=== PATIENT | male | born 1990 | race Caucasian/White ===

== ENCOUNTER 2022-03-22 03:02 | Emergency (ER) | payer OTHER, SELFPAY ==
--- NOTE | ~2022-03-22 | XR_ITS ---
EXAMINATION: XR chest 1V portable DATE: 03/22/2022 03:23 INDICATION: Difficulty breathing. TECHNIQUE: A single frontal view of the chest was obtained. COMPARISON: None. FINDINGS: There are mild airspace opacities in the lower lung zones. No pleural effusion or pneumotho rax. The heart size is normal. IMPRESSION: 1. Mild airspace opacities in the lower lung zones, consistent with atelectasis versus pneumonia. Reviewed, dictated and finalized at location A. [employer] I MANAGER
[2022-03-22 03:00] VITALS: BP 139/79; PULSE 73; RESP 19; TEMP 36.9; O2SAT 98
--- NOTE | 2022-03-22 03:08 | ECG_ITS ---
Measurements Intervals [place] Rate: 68 P: 19 ID: [id number] QRS: 9 QRSD: 112 T: 29 QT: 413 QTc: 440 Interpretive Statements SINUS RHYTHM WITH SINUS ARRHYTHMIA INCOMPLETE RIGHT BUNDLE BRANCH BLOCK ST ELEVATION IN DIFFUSE LEADS- PROBABLY EARLY REPOLARIZATION BASELINE WANDER- II, III, AVF BORDERLINE ECG NO PREVIOUS ECG AVAILABLE FOR COMPARISON Electronically Signed On 03-22-2022 6:46:15 [employer] by Ryan Alonzo D.O.
[2022-03-22 03:15] VITALS: O2SAT 99
--- NOTE | 2022-03-22 03:33 | ED.SOB ---
HPI - SOB/Dyspnea General Chief Complaint: Shortness of Breath/Dyspnea Stated Complaint: DIFFICULTY IN BREATHING Time Seen by Provider: 03/22/22 03:06 History of Present Illness HPI Narrative: Patient states that he has been having a slight cough last few days and coughing up stuff, he is also endorsing some mild chest tightness and shortness of breath. States the last time he had this was also a cold. Related Data Home Medications Medication Instructions Recorded Confirmed No Home Medications 03/22/22 03/22/22 Allergies Allergy/AdvReac Type Severity Reaction Status Date / Time codeine Allergy Unknown RASH Verified 03/22/22 03:10 Review of Systems Review of Systems: CONST: Chills HEENT: No sore throat C/V: chest pain RESP: cough GI: No nausea vomiting : No dysuria. M/S: No joint pain. SKIN: No rash. NEURO: [No headache or focal numbness or weakness] PSYCH: [No depression] [facility] Past Medical History Medical History (Updated 03/22/22 @ 03:38 by Olamide Huber MD) No active medical problems Surgical History Surgical History (Updated 03/22/22 @ 03:39 by Olamide Huber MD) No significant past surgical history Exam Narrative: EXAMINATION OF ORGAN SYSTEMS/BODY AREAS: Constitutional: Vital signs per nursing GENERAL:[No acute distress, non-toxic appearing.] Resting/sleeping comfortably HEAD: Normal with no signs of head trauma. EYES: EOMI, conjunctiva normal ENT: Hearing grossly intact LUNGS: Nonlabored breathing. CTAB HEART: [Regular rate and rhythm] ABD: [Soft], nondistended EXT: Normal range of motion SKIN: [No rashes or lesions.] NEURO: [Alert and oriented x 3. No gross focal sensory or strength deficits.] PSYCH: Normal affect Course Vital Signs Vital signs: Vital Signs Temperature 98.4 F 03/22/22 03:00 Pulse Rate 73 03/22/22 03:00 Respiratory Rate 19 03/22/22 03:00 Blood Pressure 139/79 03/22/22 03:00 Pulse Oximetry 98 03/22/22 03:00 Oxygen Delivery Room Air 03/22/22 03:00 Temperature 98.4 F 03/22/22 03:00 Pulse Rate 74 03/22/22 03:38 Respiratory Rate 20 03/22/22 03:38 Blood Pressure 137/66 03/22/22 03:38 Pulse Oximetry 99 03/22/22 03:38 Oxygen Delivery Room Air 03/22/22 03:15 MDM - SOB/Dyspnea MDM Narrative Medical decision making narrative: ED COURSE AND MEDICAL DECISION MAKING: This 31-year old patient presents with symptoms most suggestive of viral upper respiratory tract infection. Lungs are clear bilaterally without any respiratory distress or accessory muscle use. He is resting comfortably. Per EMS, he actually had been staying at a senior care house because he is on parole, and had actually asked EMS to take him to the furthest hospital possible, and given his well appearance here and the fact that he was sleeping most of the time here in no distress. EKG - 12-Lead: Performed at 0310. Interpreted by me. [Sinus rhythm]. Rate 68. [Normal] axis. MA-interval [normal]. QRS duration [normal]. QTc [normal]. [No ST segment elevation or depression]. [T-wave normal]. Impression: No EKG evidence of acute ischemia or dysrhythmia. Chest x-ray interpreted by myself, no acute process. Negative for flu, RSV, COVID. Patient is discharged home in stable condition with expectant management. Return precautions were provided. Procedures: Pulse oximetry interpretation - not hypoxic. Review of medical records. DISPOSITION: Discharged home in stable condition. Lab Data Labs: Lab Results 03/22/22 Range/Units 03:30 Influenza A (RT-PCR) Negative (Negative) Influenza B (RT-PCR) Negative (Negative) RSV (RT-PCR) Negative (Negative) SARS-CoV-2 RNA (RT-PCR) Negative Discharge Plan Discharge Clinical Impression: Cough, Mild shortness of breath, Chest pain Patient Disposition: Home, Self-Care Condition: Stable Instructions: Antibiotic Form, Chest Pain (DC), Acute Cough (ED) Additional Instructions: Please follow
[2022-03-22 03:38] VITALS: BP 137/66; PULSE 74; RESP 20; O2SAT 99
[2022-03-22 04:11] LABS: Influenza A QL RT-PCR Negative (Negative); Influenza B QL RT-PCR Negative (Negative); RSV RNA, RT-PCR Negative (Negative); SARS-CoV-2 RNA PCR Negative
== END 2022-03-22 03:50 | disposition home or self-care (01) ==
PROVIDERS: Emergency Provider Emergency Medicine
DX: R05.9 Cough, unspecified (principal); R06.02 Shortness of breath; R07.89 Other chest pain; Z20.822 Contact with and (suspected) exposure to COVID-19
CPT/HCPCS: 71045; 87637; 93005; 99283

== ENCOUNTER 2022-03-22 06:03 | Emergency (ER) | payer OTHER, SELFPAY ==
[2022-03-22 06:20] VITALS: BP 150/79; PULSE 83; RESP 16; TEMP 36.4; O2SAT 99
--- NOTE | 2022-03-22 06:23 | ED.GENADULT ---
HPI - General Adult General Chief complaint: Unspecified Stated complaint: Libido issues Time Seen by Provider: 03/22/22 06:17 History of Present Illness HPI narrative: Patient presents stating that he'll wake up and be screaming and jacking off. He states for months now he'll take a long time to ejaculate and when he does, it hits the wall, and then his scrotum will be sore. No acute changes in his symptoms; no current testicular or penile pain. He wants to have his testosterone checked; he has history of marijuana and methamphetamine use. Related Data Home Medications Medication Instructions Recorded Confirmed No Home Medications 03/22/22 03/22/22 Allergies Allergy/AdvReac Type Severity Reaction Status Date / Time codeine Allergy Unknown RASH Verified 03/22/22 03:10 Review of Systems Review of Systems: CONST: Chills HEENT: No sore throat C/V: No chest pain currently RESP: Cough GI: No nausea or vomiting : Penile dysfunction M/S: No joint pain. SKIN: No rash. NEURO: [No headache or focal numbness or weakness] PSYCH: Substance use issues [facility] Past Medical History Medical History No active medical problems Surgical History Surgical History No significant past surgical history Social History Social History (Updated 03/22/22 @ 06:27 by Olamide Huber MD) Substance use type: marijuana and methamphetamine Exam Narrative: EXAMINATION OF ORGAN SYSTEMS/BODY AREAS: Constitutional: Vital signs per nursing GENERAL:[No acute distress, non-toxic appearing.] HEAD: Normal with no signs of head trauma. EYES: EOMI, conjunctiva normal ENT: Hearing grossly intact LUNGS: Nonlabored breathing. HEART: [Regular rate and rhythm] ABD: No distention EXT: Normal range of motion SKIN: [No rashes or lesions.] NEURO: [Alert and oriented x 3. No gross focal sensory or strength deficits.] PSYCH: Normal affect Course Vital Signs Vital signs: Vital Signs Temperature 97.6 F 03/22/22 06:20 Pulse Rate 83 03/22/22 06:20 Respiratory Rate 16 03/22/22 06:20 Blood Pressure 150/79 H 03/22/22 06:20 Pulse Oximetry 99 03/22/22 06:20 Oxygen Delivery Room Air 03/22/22 06:20 Temperature 97.6 F 03/22/22 06:20 Pulse Rate 83 03/22/22 06:20 Respiratory Rate 16 03/22/22 06:20 Blood Pressure 150/79 H 03/22/22 06:20 Pulse Oximetry 99 03/22/22 06:20 Oxygen Delivery Room Air 03/22/22 06:20 Medical Decision Making MDM Narrative Medical decision making narrative: 31-year-old male presenting with sexual dysfunction issues and would like his testosterone checked, vital signs stable, he is well-appearing in no distress, not currently having interaction nor pain in his testicles, he is well-appearing in no distress, and given follow-up to urology and return precautions as well as substance use information. Stable for discharge. Vital Signs Vital Signs: Vital Signs Temperature 97.6 F 03/22/22 06:20 Pulse Rate 83 03/22/22 06:20 Respiratory Rate 16 03/22/22 06:20 Blood Pressure 150/79 H 03/22/22 06:20 Pulse Oximetry 99 03/22/22 06:20 Oxygen Delivery Room Air 03/22/22 06:20 Temperature 97.6 F 03/22/22 06:20 Pulse Rate 83 03/22/22 06:20 Respiratory Rate 16 03/22/22 06:20 Blood Pressure 150/79 H 03/22/22 06:20 Pulse Oximetry 99 03/22/22 06:20 Oxygen Delivery Room Air 03/22/22 06:20 Discharge Plan Discharge Clinical Impression: Delayed ejaculation Patient Disposition: Home, Self-Care Condition: Stable Instructions: Antibiotic Form, Methamphetamine Use Disorder (ED), Scrotal Pain (ED) Additional Instructions: Please follow up with the urologist; you can always return to the ER if you have any further issues, or if you have any painful erection or other issue that doesn't resolve after 4 hours. Prescriptions: No Action No Home Med
== END 2022-03-22 06:30 | disposition home or self-care (01) ==
PROVIDERS: Emergency Provider Emergency Medicine
DX: F52.32 Male orgasmic disorder (principal); F15.90 Other stimulant use, unspecified, uncomplicated; F12.90 Cannabis use, unspecified, uncomplicated
CPT/HCPCS: 99281